=== PATIENT | female | born 1990 | race Caucasian/White ===

== ENCOUNTER 2019-10-22 07:11 | Outpatient (CLI) | payer BC, SELFPAY ==
--- NOTE | ~2019-10-22 | US_ITS ---
EXAMINATION: US thyroid DATE: 10/22/2019 07:41 INDICATION: Malignant neoplasm of thyroid. TECHNIQUE: Multiple ultrasound images of the thyroid were obtained. COMPARISON: None. FINDINGS: There are changes of total thyroidectomy. There is no lymphadenopathy. IMPRESSION: 1. Total thyroidectomy. No lymphadenopathy. Reviewed, dictated and finalized at location A.
== END 2019-10-22 07:12 | disposition home or self-care (01) ==
PROVIDERS: Visit Provider Internal Medicine Endocrinology, Diabetes & Metabolism
DX: C73 Malignant neoplasm of thyroid gland (principal); E89.0 Postprocedural hypothyroidism
CPT/HCPCS: 76536